=== PATIENT | female | born 1985 | race African-American/Black ===

== ENCOUNTER 2018-02-10 11:40 | Emergency (ER) | payer MEDICAID ==
[~2018-02-10 11:40] MED LIST: NONE REPORTED
== END 2018-02-10 12:44 | disposition left against medical advice (07) ==
LOC: ER 12:18
DX: M54.5 Low back pain (principal); Z53.21 Procedure and treatment not carried out due to patient leaving prior to being seen by health care provider

== ENCOUNTER 2018-02-18 07:50 | Emergency (ER) | payer MEDICAID ==
[~2018-02-18] VITALS: Ht 170.2 cm; Wt 91.0 kg
[2018-02-18 07:52] VITALS: BP 118/75
== END 2018-02-18 10:26 | disposition home or self-care (01) ==
LOC: ER 08:09
DX: S00.83XA Contusion of other part of head, initial encounter (principal); D25.9 Leiomyoma of uterus, unspecified; M54.5 Low back pain; Z88.0 Allergy status to penicillin; Y08.89XA Assault by other specified means, initial encounter; Y93.89 Activity, other specified; Y92.89 Other specified places as the place of occurrence of the external cause; Y99.8 Other external cause status
CPT/HCPCS: 76856; 99284

== ENCOUNTER 2018-02-20 16:39 | Emergency (ER) | payer MEDICAID ==
[~2018-02-20] VITALS: Ht 162.6 cm; Wt 90.0 kg
[2018-02-20] MEDS ORDERED: IBUPROFEN 200MG TABLET ONE (16:40)
[2018-02-20] MEDS ORDERED: IBUPROFEN 800MG TABLET PO ONE (17:15)
[2018-02-20] MEDS ORDERED: HYDROCODONE/ACETAMINOPHEN 5/325MG TABLET PO ONE (21:00)
[2018-02-20] MEDS ORDERED: LIDOCAINE HCL 1% 20ML VIAL (Pyxis) INJ INFIL ONE (21:00)
[2018-02-20] MEDS ORDERED: LIDOCAINE HCL/PF 1% 10 MG/ML 30ML VIAL INFIL SCH (21:30)
[2018-02-20] MEDS ORDERED: TETANUS, DIPHTHERIA, PERTUSSIS VAC/PF 0.5ML (>7YR OLD) IM ONE (22:00)
[2018-02-20 22:46] VITALS: BP 112/61
== END 2018-02-20 22:44 | disposition home or self-care (01) ==
LOC: ER 16:39
DX: S01.01XA Laceration without foreign body of scalp, initial encounter (principal); R42 Dizziness and giddiness; R51 Headache; R11.0 Nausea; X99.8XXA Assault by other sharp object, initial encounter; Y93.89 Activity, other specified; Y92.89 Other specified places as the place of occurrence of the external cause; Z23 Encounter for immunization; Z88.0 Allergy status to penicillin
CPT/HCPCS: 12002; 99283; J3490; X7700; Z7610; 90715

== ENCOUNTER 2018-03-04 11:12 | Emergency (ER) | payer MEDICAID ==
[~2018-03-04] VITALS: Ht 170.2 cm; Wt 91.0 kg
[2018-03-04 12:52] VITALS: BP 129/56
== END 2018-03-04 12:52 | disposition home or self-care (01) ==
LOC: ER 11:20
DX: S00.511A Abrasion of lip, initial encounter (principal); Z88.0 Allergy status to penicillin; K91.71 Accidental puncture and laceration of a digestive system organ or structure during a digestive system procedure; Y65.8 Other specified misadventures during surgical and medical care; Y82.8 Other medical devices associated with adverse incidents; Y92.89 Other specified places as the place of occurrence of the external cause
CPT/HCPCS: 99283

== ENCOUNTER 2018-06-08 19:23 | Emergency (ER) | payer MEDICAID ==
[~2018-06-08] VITALS: Ht 167.6 cm; Wt 86.6 kg
[2018-06-09 00:50] VITALS: BP 113/73
== END 2018-06-09 00:58 | disposition home or self-care (01) ==
LOC: ER 19:23
DX: S30.860A Insect bite (nonvenomous) of lower back and pelvis, initial encounter (principal); L29.9 Pruritus, unspecified; F12.10 Cannabis abuse, uncomplicated; Z88.0 Allergy status to penicillin; W57.XXXA Bitten or stung by nonvenomous insect and other nonvenomous arthropods, initial encounter; Y93.89 Activity, other specified; Y92.89 Other specified places as the place of occurrence of the external cause; Y99.8 Other external cause status
CPT/HCPCS: 99282; Z7610

== ENCOUNTER 2018-08-12 11:01 | Emergency (ER) | payer MEDICAID ==
[~2018-08-12] VITALS: Ht 170.2 cm; Wt 77.0 kg
[2018-08-12] MEDS ORDERED: TRAMADOL 50MG TABLET PO ONE (13:00)
[2018-08-12] MEDS ORDERED: BACITRACIN ZINC OINT UDPKT TOP ONE (13:00)
[2018-08-12] MEDS ORDERED: LIDOCAINE HCL/PF 1% 10 MG/ML 5ML VIAL IJ ONE (13:00)
[2018-08-12 17:55] VITALS: BP 128/84
[2018-08-12 18:22] LABS: HEPATITIS B SURFACE ANTIGEN NEGATIVE
== END 2018-08-12 17:56 | disposition home or self-care (01) ==
LOC: ER 11:18
DX: S01.01XA Laceration without foreign body of scalp, initial encounter (principal); F12.10 Cannabis abuse, uncomplicated; R42 Dizziness and giddiness; M54.9 Dorsalgia, unspecified; W22.8XXA Striking against or struck by other objects, initial encounter; Y93.89 Activity, other specified; Y92.89 Other specified places as the place of occurrence of the external cause; Y99.8 Other external cause status; Z88.0 Allergy status to penicillin
CPT/HCPCS: 36415; 70450; 70486; 72125; 99285; J3490

== ENCOUNTER 2018-08-24 15:31 | Emergency (ER) | payer MEDICAID ==
[~2018-08-24] VITALS: Ht 170.2 cm; Wt 86.7 kg
[2018-08-24 15:49] VITALS: BP 107/62
== END 2018-08-24 16:14 | disposition home or self-care (01) ==
LOC: ER 16:05
DX: Z48.02 Encounter for removal of sutures (principal); F17.210 Nicotine dependence, cigarettes, uncomplicated; F12.90 Cannabis use, unspecified, uncomplicated
CPT/HCPCS: 99281

== ENCOUNTER 2018-12-19 00:14 | Emergency (ER) | payer MEDICAID ==
[~2018-12-19] VITALS: Ht 167.6 cm; Wt 68.0 kg
[2018-12-19 00:17] VITALS: BP 108/70
== END 2018-12-19 02:51 | disposition left against medical advice (07) ==
LOC: ER 00:14
DX: Z53.21 Procedure and treatment not carried out due to patient leaving prior to being seen by health care provider (principal); R53.1 Weakness

== ENCOUNTER 2019-08-02 07:36 | Emergency (ER) | payer MEDICAID ==
[~2019-08-02] VITALS: Ht 167.6 cm; Wt 77.0 kg
[2019-08-02 07:38] VITALS: BP 88/57
== END 2019-08-02 08:09 | disposition home or self-care (01) ==
LOC: ER 07:54
DX: R51 Headache (principal); F12.90 Cannabis use, unspecified, uncomplicated
CPT/HCPCS: 99283

== ENCOUNTER 2021-12-26 05:36 | Emergency (ER) | payer MEDICAID ==
[~2021-12-26] VITALS: Ht 170.2 cm; Wt 73.0 kg
[2021-12-26] MEDS ORDERED: ACETAMINOPHEN 325MG TABLET PO STA (06:02)
[2021-12-26] MEDS ORDERED: MAGNESIUM/ALUMINUM HYDROXIDE/SIMETHICONE 30ML UDC PO STA (06:02)
[2021-12-26 06:32] VITALS: BP 138/77
== END 2021-12-26 06:35 | disposition left against medical advice (07) ==
LOC: EDBD 05:36 → ER 05:49
DX: R10.13 Epigastric pain (principal); F12.10 Cannabis abuse, uncomplicated; Z88.0 Allergy status to penicillin
CPT/HCPCS: 81025; 99282

== ENCOUNTER 2022-07-26 14:45 | Emergency (ER) | payer MEDICAID ==
[~2022-07-26] VITALS: Ht 170.2 cm; Wt 100.0 kg
[2022-07-26 15:21] VITALS: BP 120/70
[2022-07-26] MEDS ORDERED: ACETAMINOPHEN 325MG TABLET PO ONE (16:15)
[2022-07-26] MEDS ORDERED: ACETAMINOPHEN 500MG TABLET PO NR (16:45)
[2022-07-26] MEDS ORDERED: CYCL5TAB MT (17:23)
[2022-07-26] MEDS ORDERED: TOPUD PO (17:23)
== END 2022-07-26 18:08 | disposition home or self-care (01) ==
LOC: ER 14:45
DX: S40.011A Contusion of right shoulder, initial encounter (principal); V49.59XA Passenger injured in collision with other motor vehicles in traffic accident, initial encounter; Y93.89 Activity, other specified; Y92.89 Other specified places as the place of occurrence of the external cause; Y99.8 Other external cause status; Z88.0 Allergy status to penicillin; F12.10 Cannabis abuse, uncomplicated
CPT/HCPCS: 73030; 81025; 99283

== ENCOUNTER 2023-04-13 03:40 | Emergency (ER) | payer MEDICAID ==
[~2023-04-13] VITALS: Ht 170.2 cm; Wt 99.3 kg
[~2023-04-13 03:40] MED LIST changes: +CYCL5TAB MT; +TOPUD PO
[2023-04-13 04:17] VITALS: BP 132/85; PULSE 72; RESP 16; TEMP 98.2; O2SAT 100
[2023-04-13] MEDS ORDERED: DIPHENHYDRAMINE 25MG CAPSULE PO ONE (05:15)
[2023-04-13] MEDS ORDERED: CETI10TA11 MT (05:34)
[2023-04-13] MEDS ORDERED: HYDR453.3 TP (05:34)
[2023-04-13] MEDS ORDERED: CLOT15CR27 TP (05:34)
== END 2023-04-13 06:20 | disposition home or self-care (01) ==
LOC: ER 03:40
DX: L84 Corns and callosities (principal); B35.3 Tinea pedis; Z88.0 Allergy status to penicillin
CPT/HCPCS: 99282